=== PATIENT | female | born 1985 | race Caucasian/White ===

== ENCOUNTER → 2016-12-13 | Day surgery (SDC) | payer MEDICARE, MEDICAID ==
[~2016-12-13] VITALS: Ht 177.8 cm; Wt 102.0 kg
[~2016-12-13] MED LIST: AMBI10TA PO; BUPIVACAINE HCL PF 0.5% 30 ML VIAL ONE; CARA1TAB6 PO; CEPH-460 PO; CHLORHEXIDINE GLUCONATE 2 % 1 PACK (2 CLOTHS) TOPICAL PRN; CLON0.2T PO; CYCL1TAB29 PO; DILA4TAB2 PO; EFFE150C PO; FAMO1TAB73 PO; FAMOTIDINE 20 MG/2 ML VIAL ONE; HALO0.5T PO; HYDR-3288 PO; HYDROmorphone HCL PF 1 MG/ML VIAL ONE; INSULIN HUMAN REGULAR 1,000 UNITS/10 ML VIAL SQ PRN; LACTATED RINGER'S 1000 ML INJ 1,000 ML IV ONE; LACTATED RINGER'S 1000 ML IV PRN; LANTUS2P SQ; LIDOCAINE HCL 1% 20 ML VIAL ONE; LIDOCAINE HCL 2% 50 ML VIAL ONE; LORA1TAB12 PO; METOPROLOL TARTRATE 25 MG TAB PO PRN; MIDAZOLAM HCL 2 MG/2 ML VIAL ONE; NEOMYCIN/POLYMYXIN 1 ML G.U. IRRIGANT ONE; NEXI40CA PO; NOVOINJ2 SQ; NOVORP2 SQ; POVIDONE IODINE 5% (ANTISEPSIS KIT) 4 APPLICATIONS EACH NARE PRN; PROM25TA10 PO; PROPOFOL 200 MG/20 ML AMP IV ONE; REST30CA PO; SAPH10SU3 SL; SITA50 PO; SODIUM CHLORID 0.9% 500 ML IV PRN; XANA2TAB2 PO; ZOFR8TAB4 SL; ceFAZolin 2 GM PREMIX 50 ML IV SCH
[2016-12-13] MEDS: MIDAZOLAM HCL 2 MG/2 ML VIAL ONE ×2 (08:10→08:22)
[2016-12-13] MEDS: FAMOTIDINE 20 MG/2 ML VIAL ONE ×2 (08:13→08:17)
[2016-12-13 08:16] LABS: HEMATOCRIT 30.5 % (35.0-46.0); MEAN CELL VOLUME 74.4 FL (80.0-100.0); MEAN CORPUSCULAR HGB CONC 30.9 % (32.0-36.0); PLATELET COUNT 354 TH/MM3 (150-450); WHITE BLOOD COUNT 9.1 TH/MM3 (4.0-11.0)
[2016-12-13 08:19] LABS: REVIEW FLAG FINAL
--- NOTE | 2016-12-13 09:46 | MP ---
cc: JOHAN LINDO III, M.D. DATE OF SURGERY 12/13/2016 PREOPERATIVE DIAGNOSIS Left hand mass/left hand pain. PROCEDURE Left hand mass excisional biopsy. SURGEON Johan Lindo III, MD PROCEDURE The patient was brought to the operating room and placed supine on the operating table. After the correct site and side of surgery were verified by members of each team in the room multiple times including the patient and myself and after adequate preop markings and preoperative written consent were verified by everyone and after adequate preoperative time-out was performed to everyone's satisfaction and after adequate general anesthesia had been achieved, the left upper extremity was prepped and draped in the traditional sterile surgical fashion. A 50/50 mixture of 2% plain lidocaine and 0.5% plain Marcaine was infiltrated into the skin and subcutaneous tissue proximal to the wound. The limb was exsanguinated with a gentle Uriel wrap and a highly placed well-padded axillary tourniquet was inflated to 200 mmHg for a total of eight minutes. An oval-shaped incision was then made through the skin surrounding the entire mass and underneath dystrophic skin. Blunt dissection was then performed deep as the mass did go through the deep dermal layer into the soft adipose tissue, but was easily dissected free from the surrounding tissue. This was passed off the field in its entirety as a specimen. There were no other anatomic abnormalities. There was no evidence of any infection. A half a liter worth of saline irrigation was used to thoroughly flush out the wound. The skin edges were then reapproximated using interrupted 4-0 nylon sutures. The axillary tourniquet was released. Hemostasis was present. The hand and all the fingers on the left including the index finger became immediately soft, pink, warm and had brisk capillary refill of less than two seconds. Sponge, needle and instrument counts were correct at the end of the case as reported by nurses in the room. MD HUY Elliott III/ELIZABETH /9:13 AM /9:29 AM
[2016-12-13 10:30] VITALS: BP 117/79; PULSE 90; RESP 17; TEMP 99; O2SAT 93
== END | disposition home or self-care (01) ==
LOC: PHSDC 06:57
PROVIDERS: ATTEND Orthopaedic Surgery Hand Surgery
DX: R22.32 Localized swelling, mass and lump, left upper limb (principal); E11.9 Type 2 diabetes mellitus without complications; I10 Essential (primary) hypertension; Z79.4 Long term (current) use of insulin; F17.200 Nicotine dependence, unspecified, uncomplicated; Z01.818 Encounter for other preprocedural examination
CPT/HCPCS: 00400; 26115; 36415; 82948; 85027; 88305; 88312; J0690; J1170; J2250; J3010; J7120

== ENCOUNTER 2017-05-11 23:54 | Emergency (ER) | payer MEDICARE, MEDICAID ==
[~2017-05-11] VITALS: Ht 177.8 cm; Wt 115.0 kg
[~2017-05-11 23:54] MED LIST changes: -BUPIVACAINE HCL PF 0.5% 30 ML VIAL ONE; -CARA1TAB6 PO; -CEPH-460 PO; -CHLORHEXIDINE GLUCONATE 2 % 1 PACK (2 CLOTHS) TOPICAL PRN; +CYCL10TA PO; -CYCL1TAB29 PO; +DILA4TAB10 PO; -DILA4TAB2 PO; -FAMOTIDINE 20 MG/2 ML VIAL ONE; -HYDR-3288 PO; -HYDROmorphone HCL PF 1 MG/ML VIAL ONE; -INSULIN HUMAN REGULAR 1,000 UNITS/10 ML VIAL SQ PRN; -LACTATED RINGER'S 1000 ML INJ 1,000 ML IV ONE; -LACTATED RINGER'S 1000 ML IV PRN; -LIDOCAINE HCL 1% 20 ML VIAL ONE; -LIDOCAINE HCL 2% 50 ML VIAL ONE; -METOPROLOL TARTRATE 25 MG TAB PO PRN; -MIDAZOLAM HCL 2 MG/2 ML VIAL ONE; -NEOMYCIN/POLYMYXIN 1 ML G.U. IRRIGANT ONE; -NOVOINJ2 SQ; -POVIDONE IODINE 5% (ANTISEPSIS KIT) 4 APPLICATIONS EACH NARE PRN; -PROPOFOL 200 MG/20 ML AMP IV ONE; -REST30CA PO; -SITA50 PO; -SODIUM CHLORID 0.9% 500 ML IV PRN; -ceFAZolin 2 GM PREMIX 50 ML IV SCH
[2017-05-12 00:14] VITALS: BP 148/98; PULSE 116; RESP 20; TEMP 98.3; O2SAT 98
[2017-05-12] MEDS ORDERED: FAMOTIDINE 20 MG/2 ML VIAL IV PUSH ONE (00:30)
[2017-05-12] MEDS ORDERED: ONDANSETRON HCL 4 MG/2 ML VIAL IVP ONE (00:30)
[2017-05-12] MEDS ORDERED: diphenhydrAMINE HCL 50 MG/ML VIAL IV PUSH ONE (00:30)
[2017-05-12] MEDS ORDERED: KETOROLAC TROMETHAMINE 30 MG/ML (IVP) VIAL IVP ONE (00:30)
[2017-05-12] MEDS ORDERED: SODIUM CHLORIDE 0.9% FLUSH 10 ML FLUSH IV FLUSH PRN (00:30)
[2017-05-12] MEDS ORDERED: METOCLOPRAMIDE HCL 10 MG/2 ML VIAL IV PUSH ONE (00:30)
--- NOTE | 2017-05-12 00:36 | PD ---
HPI Chief Complaint: Abdominal Pain Time Seen by Provider: 00:20 Travel History International Travel<30 days: No Contact w/Intl Traveler<30days: No Traveled to known affect area: No History of Present Illness HPI 32-year-old female complains of abdominal pain, nausea vomiting. Patient states that she has history of recurrent abdominal pain and cyclic vomiting syndrome for the past 14 years. Patient has been seen by physician outside the state. Patient states that she moved here recently. Patient states that she has history of chronic pain also. Patient stated that she was on Phenergan for nausea vomiting. Patient states that she has been unable to keep p.o. medication now for the past 3 days. Patient states that she is has been unable to take her Percocet for pain for the past several days. Patient denies any fever chills. Patient denies any chest pain or shortness of breath. PFSH Past Medical History Diabetes: Yes Patient Takes Glucophage: No Gastrointestinal Disorders: Yes (CYCLIC VOMITING) Psychiatric: Yes (ANXIETY) Reproductive: Yes (OVARIAN CYSTS) ?: Unknown Past Surgical History Ear Surgery: Yes (LEFT DRUM REPAIR) Oral Surgery: Yes (TONSILLECTOMY) Social History Alcohol Use: No Tobacco Use: No Substance Use: No Allergies-Medications (Allergen,Severity, Reaction): Coded Allergies: No Known Allergies (Verified Adverse Reaction, Unknown, 05/12/17) Reported Meds & Prescriptions Reported Meds & Active Scripts Active Reported Lorazepam 1 Mg Tab 1 Mg PO TID Haloperidol 0.5 Mg Tab 0.5 Mg PO HS Ambien (Zolpidem Tartrate) 10 Mg Tab 10 Mg PO HS PRN Novolin R Inj (Insulin Human Regular) 1,000 Unit/10 Ml Vial 0 SQ DIRECTED Sliding Scale As Directed. Lantus Inj (Insulin Glargine) 1,000 Unit/10 Ml Vial 10 Units SQ HS Clonidine (Clonidine HCl) 0.2 Mg Tab 0.2 Mg PO BID Xanax (Alprazolam) 2 Mg Tab 2 Mg PO Q8H PRN Saphris (Asenapine) 10 Mg Subl 10 Mg SL BID Effexor XR 24 HR (Venlafaxine HCl) 150 Mg Cap 150 Mg PO DAILY Dilaudid (Hydromorphone HCl) 4 Mg Tab 4 Mg PO Q4H PRN Nexium (Esomeprazole DR) 40 Mg Capdr 40 Mg PO DAILY Zofran Odt (Ondansetron Odt) 8 Mg Tab 8 Mg SL Q6HR PRN Phenergan (Promethazine HCl) 25 Mg Tablet 25 Mg PO Q6H PRN Review of Systems General / Constitutional: No: Fever Eyes: No: Visual changes HENT: No: Headaches Cardiovascular: No: Chest Pain or Discomfort Respiratory: No: Shortness of Breath Gastrointestinal: Positive: Nausea, Vomiting, Abdominal Pain Genitourinary: No: Dysuria Musculoskeletal: No: Pain Skin: No Rash Neurologic: No: Weakness Psychiatric: No: Depression Endocrine: No: Polydipsia Hematologic/Lymphatic: No: Easy Bruising Physical Exam Narrative GENERAL: Well-nourished, well-developed patient. SKIN: Focused skin assessment warm/dry. HEAD: Normocephalic. EYES: No scleral icterus. No injection or drainage. NECK: Supple, trachea midline. No JVD or lymphadenopathy. CARDIOVASCULAR: Regular rate and rhythm without murmurs, gallops, or rubs. RESPIRATORY: Breath sounds equal bilaterally. No accessory muscle use. GASTROINTESTINAL: Abdomen soft, nondistended. Patient has mild to moderate diffuse tenderness of the abdomen. No rebound tenderness. No mass. MUSCULOSKELETAL: No cyanosis, or edema. BACK: Nontender without obvious deformity. No CVA tenderness. Neurologic exam normal. Data Data Last Documented VS Vital Signs Date Time Temp Pulse Resp B/P (MAP) Pulse Ox O2 Delivery O2 Flow Rate FiO2 05/12/17 00:19 22 05/12/17 00:14 98.3 116 148/98 (115) 98 Room Air Orders Orders Alcohol (Ethanol) (05/12/17 00:29) Complete Blood Count With Diff (05/12/17:26) Comprehensive Metabolic Panel (05/12/17:26) Lipase (05/12/17:) Urinalysis - C+S If Indicated (05/12/17:) Iv Access Insert/Monitor (05/12/17:) Ecg Monitoring (05/12/17:) Oximetry (05/12/17:) Ondansetron Inj (Zofran Inj) (05/12/17 00:30) Sodium Chloride 0.9% Flush (Ns Flush) (05/12/17 00:30) Famotidine Inj (Pepcid Inj) (05/12/17 00:30) Ketorolac Inj (Toradol Inj) (05/12/17 00:30) Metoclopramide Inj (Reglan Inj) (05/12/17 00:30) Diphenhydramine Inj (Benadryl Inj) (05/12/17 00:30) MDM Medical Decision Making Medical Screen Exam Complete: Yes Emergency Medical Condition: Yes Differential Diagnosis Differential diagnosis including acute exacerbation of abdominal pain with cyclic vomiting, electrolyte imbalance, dehydration, gastritis, pancreatitis, colitis, UTI, pyelonephritis. Narrative Course 32-year-old female with abdominal pain, nausea vomiting. History of cyclic vomiting syndrome and recurrent abdominal pain. Normal saline solution 1 25 cc an hour. Zofran 4 mg IV. Reglan 10 mg IV. Benadryl 25 mg IV. Pepcid 20 mg IV. 12:42 AM. Patient does not want to stay for treatment and blood test. Patient leaves AMA. Diagnosis Primary Impression: Abdominal pain Qualified Codes: R10.10 - Upper abdominal pain, unspecified Additional Impression: Cyclical vomiting Qualified Codes: G43.A0 - Cyclical vomiting, not intractable Patient Instructions: General Instructions Additional Instructions: Patient leaves AMA. Disposition: 07 AGAINST MEDICAL ADVICE Condition: Pedro Inman MD May 12, 2017 00:36
[2017-05-12 00:56] LABS: AUTOMATED NEUTROPHIL # 6.7 TH/MM3 (1.8-7.7); BASOPHIL # 0.1 TH/MM3 (0-0.2); BASOPHIL % 0.7 % (0.0-2.0); EOSINOPHIL # 0.2 TH/MM3 (0-0.4); EOSINOPHIL % 2.1 % (0.0-4.0); HEMATOCRIT 37.1 % (35.0-46.0); HEMOGLOBIN 12.5 GM/DL (11.6-15.3); LYMPH % 33.8 % (9.0-44.0); MEAN CORPUSCULAR HEMOGLOBIN 28.9 PG (27.0-34.0); MEAN CORPUSCULAR HGB CONC 33.6 % (32.0-36.0); MONO % 6.6 % (0.0-8.0); MONOCYTE # 0.8 TH/MM3 (0-0.9); NEUT % 56.8 % (16.0-70.0); PLATELET COUNT 426 TH/MM3 (150-450); RED BLOOD COUNT 4.32 MIL/MM3 (4.00-5.30); RED CELL DISTRIBUTION WIDTH 18.8 % (11.6-17.2); WHITE BLOOD COUNT 11.9 TH/MM3 (4.0-11.0)
[2017-05-12 01:27] LABS: ALBUMIN 3.7 GM/DL (3.4-5.0); ALT (GPT) 25 U/L (10-53); AST (GOT) 21 U/L (15-37); BICARBONATE 26.5 MEQ/L (21.0-32.0); BLOOD UREA NITROGEN 14 MG/DL (7-18); CALCIUM 9.1 MG/DL (8.5-10.1); CHLORIDE 106 MEQ/L (98-107); CREATININE 0.91 MG/DL (0.50-1.00); GLOMERULAR FILTRATION RATE 72 ML/MIN (>89); GLUCOSE,RANDOM 98 MG/DL (74-106); SODIUM (NA) 139 MEQ/L (136-145)
[2017-05-12 01:29] LABS: ALKALINE PHOSPHATASE 156 U/L (45-117); TOTAL BILIRUBIN ADULT 0.2 MG/DL (0.2-1.0); TOTAL PROTEIN 7.7 GM/DL (6.4-8.2)
== END 2017-05-12 01:01 | disposition left against medical advice (07) ==
LOC: NEPE 23:54
DX: R10.10 Upper abdominal pain, unspecified (principal); G43.A0 Cyclical vomiting, in migraine, not intractable; E11.9 Type 2 diabetes mellitus without complications; F41.9 Anxiety disorder, unspecified; Z79.4 Long term (current) use of insulin; Z79.899 Other long term (current) drug therapy
CPT/HCPCS: 80053; 80307; 83690; 85025; 99283